=== PATIENT | female | born 1985 | race Hispanic/Latino ===

== ENCOUNTER → 2018-10-28 | Outpatient (CLI) | payer OTHER | END | disposition home or self-care (01) | LOC: SHCH 12:23 | PROVIDERS: ATTEND Internal Medicine Cardiovascular Disease | DX: I05.0 Rheumatic mitral stenosis (principal); I35.8 Other nonrheumatic aortic valve disorders; Z98.890 Other specified postprocedural states | CPT/HCPCS: 93306 ==

== ENCOUNTER 2019-07-02 20:37 | Emergency (ER) | payer OTHER ==
[2019-07-02] MEDS ORDERED: FLUORESCEIN SODIUM 1 STRIP STRIP ONE (20:47)
[2019-07-02] MEDS ORDERED: TETRACAINE HCL 0.5% 4 ML OPHTH SOLN ONE (20:47)
== END 2019-07-02 21:09 | disposition home or self-care (01) ==
LOC: EDH 20:37
DX: T15.12XA Foreign body in conjunctival sac, left eye, initial encounter (principal); X58.XXXA Exposure to other specified factors, initial encounter; Y93.89 Activity, other specified; Y92.89 Other specified places as the place of occurrence of the external cause; Y99.8 Other external cause status
CPT/HCPCS: 65205

== ENCOUNTER → 2022-01-11 | Outpatient (CLI) | payer BC | END | disposition home or self-care (01) | LOC: SHCH 15:27 | PROVIDERS: ATTEND Internal Medicine Cardiovascular Disease | DX: I34.2 Nonrheumatic mitral (valve) stenosis (principal); I27.20 Pulmonary hypertension, unspecified; I51.7 Cardiomegaly | CPT/HCPCS: 93306 ==

== ENCOUNTER 2022-02-26 07:37 | Day surgery (SDC) | payer BC ==
[2022-02-22 11:33] LABS: BASOPHILS % (AUTO) 0.4 % (0.0-5.0); EOSINOPHILS % (AUTO) 0.6 % (0.0-8.0); HEMATOCRIT 38.4 % (36-48); LYMPHOCYTES % (AUTO) 26.3 % (21.0-51.0); MEAN CORPUSCULAR HEMOGLOBIN 25.5 pg (27.0-33.0); MEAN CORPUSCULAR VOLUME 79.7 fL (79-99); MONOCYTES % (AUTO) 7.6 % (3.0-13.0); NEUTROPHILS % (AUTO) 64.7 % (40.0-77.0); PLATELET COUNT (AUTO) 310 K/uL (130-400); RED BLOOD CELL COUNT(AUTO) 4.82 MIL/uL (4.00-5.50); WHITE BLOOD COUNT (AUTO) 8.2 K/uL (4.8-10.8)
[2022-02-22 11:47] LABS: APPEARANCE,URINE Cloudy (CLEAR); BILIRUBIN,URINE Negative (NEGATIVE); COLOR,URINE Yellow (YELLOW); GLUCOSE, URINE (UA) Negative (NEGATIVE); KETONES,URINE Trace mg/dL (NEGATIVE); LEUKOCYTE ESTERASE ,URINE Small (NEGATIVE); NITRATE,URINE Negative (NEGATIVE); OCCULT BLOOD,URINE Negative (NEGATIVE); PROTEIN,URINE Negative (NEGATIVE)
[2022-02-22 11:52] LABS: CREATININE 0.8 mg/dL (0.5-1.5); POTASSIUM 4.2 mmol/L (3.5-5.1)
[2022-02-22 11:56] LABS: BACTERIA,URINE Rare /HPF (None Seen); RBC,URINE 0-1 /HPF (0-1); SQUAMOUS EPITHELIAL CELL,UR Rare /HPF (0-2)
[2022-02-22 11:59] LABS: B-TYPE NATRIURETIC PEPTIDE 64 pg/mL (0-100)
[2022-02-22 12:09] LABS: INR 1.04 (0.85-1.15); PROTHROMBIN TIME 11.3 SEC (9.6-11.6)
[2022-02-22 12:10] LABS: PARTIAL THROMBOPLASTIN TIME 28.6 SEC (26.3-35.5)
[2022-02-23 11:35] VITALS: BP 170/80
[2022-02-26] VITALS (24 sets, daily range): BP systolic 99–180; BP diastolic 50–98
[~2022-02-26] VITALS: Ht 149.9 cm; Wt 77.7 kg
[~2022-02-26 07:37] MED LIST: 0.9% NACL 500ML IV.SOLN 500 ML IV SCH
[2022-02-26] MEDS ORDERED: FLUMAZENIL 0.1MG/1ML 5ML VIAL IV ONE (08:02)
[2022-02-26] MEDS ORDERED: LIDOCAINE HCL 2% VISCOUS 15 ML UDCUP ONE (08:02)
[2022-02-26] MEDS ORDERED: 0.9%NACL 1000ML 1,000 ML IV ONE (08:03)
[2022-02-26] MEDS ORDERED: NALOXONE HCL 0.4 MG/1 ML ML ONE (08:03)
[2022-02-26] MEDS ORDERED: MIDAZOLAM HCL 1 MG/ML 2ML VIAL ONE ×3 (08:04→11:14)
[2022-02-26] MEDS ORDERED: FENTANYL CITRATE PF 50 MCG/1 ML 2ML VIAL ONE (08:04)
[2022-02-26] MEDS ORDERED: HEPARIN 10,000 UNIT/10ML (1,000 UNIT/ML) VIAL ONE (10:30)
[2022-02-26] MEDS ORDERED: IOHEXOL-350 75 ML VIAL IV ONE (10:30)
[2022-02-26] MEDS ORDERED: LIDOCAINE HCL 400MG/20ML VIAL ONE (10:30)
[2022-02-26] MEDS ORDERED: NITROGLYCERIN 50MG VIAL ONE (10:30)
[2022-02-26] MEDS ORDERED: MEPERIDINE-PF 25 MG/ML SYG ONE ×2 (10:38→11:14)
[2022-02-26] MEDS ORDERED: HYDRALAZINE 20MG/ML VIAL ONE (11:39)
[2022-02-26] MEDS ORDERED: 0.9%NACL 10ML VIAL IVP SCH (12:30)
[2022-02-26] MEDS ORDERED: ONDANSETRON 4MG INJ ONE (13:02)
[2022-02-26] MEDS: ONDANSETRON 4MG INJ IVP SCH ×2 (13:03→15:17)
== END 2022-02-26 16:26 | disposition home or self-care (01) ==
LOC: DAH 07:37
PROVIDERS: ATTEND Internal Medicine Cardiovascular Disease
DX: I25.10 Atherosclerotic heart disease of native coronary artery without angina pectoris (principal); I05.0 Rheumatic mitral stenosis; I50.42 Chronic combined systolic (congestive) and diastolic (congestive) heart failure; I44.7 Left bundle-branch block, unspecified; Z79.899 Other long term (current) drug therapy; Z79.01 Long term (current) use of anticoagulants; Z98.890 Other specified postprocedural states
CPT/HCPCS: 36415; 71045; 80048; 81001; 83880; 84703; 85025; 85610; 85730; 93005; 93312; 93460; A4215; A4216; A4221; A4222; A4223 ×3; A4606; A4657; A4663; C1760; C1894 ×2; J0360; J1644; J2175 ×2; J2250 ×3; J2405; J3010; J3490 ×2; J7030; Q9967; 99152; 99153; 99156; 99157; J2310

== ENCOUNTER → 2022-03-07 | Outpatient (CLI) | payer BC ==
[2022-03-07 12:55] LABS: ALBUMIN 3.3 g/dL (3.5-5.0); BILIRUBIN,TOTAL 0.4 mg/dL (0.2-1.0); CREATININE 0.8 mg/dL (0.5-1.5); POTASSIUM 3.8 mmol/L (3.5-5.1); TOTAL PROTEIN, SERUM 7.9 g/dL (6.0-8.3)
== END | disposition home or self-care (01) ==
LOC: LAB 10:40
PROVIDERS: ATTEND Physician Assistant
DX: I34.2 Nonrheumatic mitral (valve) stenosis (principal)
CPT/HCPCS: 36415; 80053; 83880

== ENCOUNTER → 2022-07-20 | Outpatient (CLI) | payer BC ==
[~2022-07-20] VITALS: Ht 152.4 cm; Wt 75.9 kg
[~2022-07-20] MED LIST changes: -0.9% NACL 500ML IV.SOLN 500 ML IV SCH; +CEFAZOLIN SODIUM 1 GM VIAL IVPB SCH; +TADA10TA14 PO
[2022-07-20 12:01] LABS: BASOPHILS % (AUTO) 0.3 % (0.0-5.0); EOSINOPHILS % (AUTO) 0.6 % (0.0-8.0); HEMATOCRIT 34.3 % (36-48); LYMPHOCYTES % (AUTO) 34.3 % (21.0-51.0); MEAN CORPUSCULAR HEMOGLOBIN 24.8 pg (27.0-33.0); MEAN CORPUSCULAR HGB CONC 32.4 g/dL (32.0-36.0); MEAN CORPUSCULAR VOLUME 76.7 fL (79-99); MONOCYTES % (AUTO) 7.3 % (3.0-13.0); NEUTROPHILS % (AUTO) 56.7 % (40.0-77.0); PLATELET COUNT (AUTO) 267 K/uL (130-400); RED BLOOD CELL COUNT(AUTO) 4.47 MIL/uL (4.00-5.50); RED CELL DISTRIBUTION WIDTH 14.6 % (11.0-15.5); WHITE BLOOD COUNT (AUTO) 6.6 K/uL (4.8-10.8)
[2022-07-20 12:12] LABS: INR 1.02 (0.85-1.15); PROTHROMBIN TIME 11.1 SEC (9.6-11.6)
[2022-07-20 12:13] LABS: PARTIAL THROMBOPLASTIN TIME 27.3 SEC (26.3-35.5)
[2022-07-20 12:16] LABS: ALBUMIN 3.6 g/dL (3.5-5.0); CREATININE 0.8 mg/dL (0.5-1.5); POTASSIUM 3.6 mmol/L (3.5-5.1); TOTAL PROTEIN, SERUM 7.8 g/dL (6.0-8.3)
[2022-07-20 12:31] LABS: HEMOGLOBIN A1C 5.5 % (4.0-6.0)
[2022-07-20 12:39] LABS: B-TYPE NATRIURETIC PEPTIDE 161 pg/mL (0-100)
[2022-07-20 13:38] VITALS: BP 174/86
== END | disposition home or self-care (01) ==
LOC: DAH 10:00 → EDSTATUS 07-23 08:00
PROVIDERS: ATTEND Thoracic Surgery (Cardiothoracic Vascular Surgery)
DX: Z01.810 Encounter for preprocedural cardiovascular examination (principal); Z20.822 Contact with and (suspected) exposure to COVID-19; I34.2 Nonrheumatic mitral (valve) stenosis; Z79.01 Long term (current) use of anticoagulants; Z79.899 Other long term (current) drug therapy
CPT/HCPCS: 71045; 87426; 80061; 83036; 80053; 83880; 84703; 85025; 85610; 85730; 86850; 86900; 86901; 36415; 93005; 94010; 87641; A6260

== ENCOUNTER 2022-11-16 22:29 | Emergency (ER) | payer BC ==
[~2022-11-16] VITALS: Ht 152.4 cm; Wt 70.8 kg
[~2022-11-16 22:29] MED LIST changes: -CEFAZOLIN SODIUM 1 GM VIAL IVPB SCH; +DOXY-469 PO; +FURO20TA6 PO; +METO25 PO; +Warfarin Sodium PO
[2022-11-16 23:00] LABS: BASOPHILS % (AUTO) 0.3 % (0.0-5.0); EOSINOPHILS % (AUTO) 1.1 % (0.0-8.0); HEMATOCRIT 25.7 % (36-48); LYMPHOCYTES % (AUTO) 25.5 % (21.0-51.0); MEAN CORPUSCULAR HEMOGLOBIN 24.6 pg (27.0-33.0); MEAN CORPUSCULAR HGB CONC 30.4 g/dL (32.0-36.0); MEAN CORPUSCULAR VOLUME 81.1 fL (79-99); MONOCYTES % (AUTO) 7.4 % (3.0-13.0); PLATELET COUNT (AUTO) 367 K/uL (130-400); RED BLOOD CELL COUNT(AUTO) 3.17 MIL/uL (4.00-5.50); RED CELL DISTRIBUTION WIDTH 15.7 % (11.0-15.5); WHITE BLOOD COUNT (AUTO) 9.7 K/uL (4.8-10.8)
[2022-11-16] MEDS ORDERED: MORPHINE 4 MG SYG IVP ONE (23:00)
[2022-11-16] MEDS ORDERED: ONDANSETRON 4MG INJ IVP ONE (23:00)
[2022-11-16 23:07] LABS: CREATININE 0.8 mg/dL (0.5-1.5); POTASSIUM 3.1 mmol/L (3.5-5.1)
[2022-11-16 23:15] LABS: ALBUMIN 3.6 g/dL (3.5-5.0); TOTAL PROTEIN, SERUM 7.6 g/dL (6.0-8.3)
[2022-11-16] MEDS ORDERED: POTASSIUM BICARB/CIT AC 25 MEQ TABLET.EFF PO ONE (23:30)
[2022-11-17] MEDS ORDERED: METOPROLOL TARTRATE 1 MG/ML 5ML VIAL IV ONE
[2022-11-17 01:08] VITALS: BP 136/70
== END 2022-11-17 01:19 | disposition home or self-care (01) ==
LOC: EDH 22:29
DX: R07.89 Other chest pain (principal); E87.6 Hypokalemia; Z95.1 Presence of aortocoronary bypass graft; Z88.1 Allergy status to other antibiotic agents; Z79.899 Other long term (current) drug therapy
CPT/HCPCS: 99284; 96374; 71045; 96375; 84484 ×2; 80053; 85025; 36415; 93005; J3490; J2405; J2270

== ENCOUNTER → 2023-01-08 | Outpatient (CLI) | payer BC | END | disposition home or self-care (01) | LOC: SHCH 11:18 | PROVIDERS: ATTEND Internal Medicine Cardiovascular Disease | DX: I08.0 Rheumatic disorders of both mitral and aortic valves (principal); Z95.2 Presence of prosthetic heart valve | CPT/HCPCS: 93306 ==

== ENCOUNTER → 2023-08-14 | Outpatient (CLI) | payer BC ==
[2023-08-14 12:15] LABS: BASOPHILS # (AUTO) 0.04 K/uL (0.00-0.20); BASOPHILS % (AUTO) 0.8 % (0.0-5.0); EOSINOPHILS # (AUTO) 0.11 K/uL (0.00-0.70); EOSINOPHILS % (AUTO) 2.1 % (0.0-8.0); IMMATURE GRANULOCYTE ABSOLUTE 0.02 K/uL (0-1); LYMPHOCYTES # (AUTO) 1.7 K/uL (1.0-4.8); LYMPHOCYTES % (AUTO) 32.3 % (21.0-51.0); MEAN CORPUSCULAR HEMOGLOBIN 21.4 pg (27.0-33.0); MEAN CORPUSCULAR HGB CONC 28.2 g/dL (32.0-36.0); MEAN CORPUSCULAR VOLUME 75.9 fL (79-99); MONOCYTES # (AUTO) 0.4 K/uL (0.1-1.0); MONOCYTES % (AUTO) 7.8 % (3.0-13.0); NEUTROPHILS % (AUTO) 56.6 % (40.0-77.0); PLATELET COUNT (AUTO) 322 K/uL (130-400); RED BLOOD CELL COUNT(AUTO) 3.69 MIL/uL (4.00-5.50); RED CELL DISTRIBUTION WIDTH 15.6 % (11.0-15.5); WHITE BLOOD COUNT (AUTO) 5.2 K/uL (4.8-10.8)
[2023-08-14 12:49] LABS: ALBUMIN 3.5 g/dL (3.5-5.0); BILIRUBIN,TOTAL 0.6 mg/dL (0.2-1.0); CREATININE 0.8 mg/dL (0.5-1.5); MAGNESIUM 1.8 mg/dL (1.80-2.40); POTASSIUM 4.1 mmol/L (3.5-5.1); TOTAL PROTEIN, SERUM 7.5 g/dL (6.0-8.3)
== END | disposition home or self-care (01) ==
LOC: LAB 08:09
PROVIDERS: ATTEND Internal Medicine Cardiovascular Disease
DX: I35.0 Nonrheumatic aortic (valve) stenosis (principal)
CPT/HCPCS: 36415; 80053; 83735; 83880; 85025

== ENCOUNTER 2024-02-13 05:53 | Day surgery (SDC) | payer BC ==
[~2024-02-13] VITALS: Ht 152.4 cm; Wt 68.9 kg
[2024-02-13] VITALS (10 sets, daily range): BP systolic 130–146; BP diastolic 62–80; PULSE 53–75; RESP 14–17
[~2024-02-13 05:53] MED LIST changes: +CHOL200079 PO; +CYAN250010 PO; -DOXY-469 PO; -FURO20TA6 PO; +POTA-200 PO; -TADA10TA14 PO
[2024-02-13] MEDS: 0.9%NACL 1000ML 1,000 ML IV ONE (06:37)
[2024-02-13] MEDS ORDERED: AMOXICILLIN 500 MG CAPSULE PO ONE (07:30)
[2024-02-13] MEDS ORDERED: PROPOFOL 10 MG/ML 20ML VIAL IV ONE (07:49)
== END 2024-02-13 09:22 | disposition home or self-care (01) ==
LOC: ENDO 05:53 → DAH 05:53 → ENDO 09:22
PROVIDERS: ATTEND Internal Medicine Gastroenterology
DX: D50.0 Iron deficiency anemia secondary to blood loss (chronic) (principal); D12.0 Benign neoplasm of cecum; D3A.8 Other benign neuroendocrine tumors; K29.50 Unspecified chronic gastritis without bleeding; Z90.49 Acquired absence of other specified parts of digestive tract; Z98.890 Other specified postprocedural states; Z95.2 Presence of prosthetic heart valve
CPT/HCPCS: 81025; 45380; 43239; J7030 ×2; J2704; A4620; A4215 ×2; A4223; A4657; A4222; A4221; A4663; A4606; J3490

== ENCOUNTER → 2024-04-15 | Outpatient (CLI) | payer BC | END | disposition home or self-care (01) | LOC: SHCH 12:20 | PROVIDERS: ATTEND Internal Medicine Cardiovascular Disease | DX: I08.3 Combined rheumatic disorders of mitral, aortic and tricuspid valves (principal); Z95.2 Presence of prosthetic heart valve | CPT/HCPCS: 93306 ==

== ENCOUNTER 2024-06-26 12:43 | Emergency (ER) | payer BC ==
[~2024-06-26] VITALS: Ht 152.4 cm; Wt 69.9 kg
[2024-06-26 12:45] VITALS: BP 154/87; PULSE 58; RESP 20; TEMP 97.4
== END 2024-06-26 13:45 | disposition home or self-care (01) ==
LOC: EDH 12:43
DX: S60.212A Contusion of left wrist, initial encounter (principal); Z79.01 Long term (current) use of anticoagulants; Z90.49 Acquired absence of other specified parts of digestive tract; Z95.1 Presence of aortocoronary bypass graft; W22.8XXA Striking against or struck by other objects, initial encounter; Y93.89 Activity, other specified; Y92.89 Other specified places as the place of occurrence of the external cause; Y99.8 Other external cause status
CPT/HCPCS: 99281

== ENCOUNTER → 2025-01-05 | Outpatient (CLI) | payer BC | END | disposition home or self-care (01) | LOC: SHCH 15:13 | PROVIDERS: ATTEND Internal Medicine Cardiovascular Disease | DX: I08.2 Rheumatic disorders of both aortic and tricuspid valves (principal); I11.9 Hypertensive heart disease without heart failure | CPT/HCPCS: 93306 ==

== ENCOUNTER 2025-02-06 18:00 | Emergency (ER) | payer BC ==
[~2025-02-06] VITALS: Ht 152.4 cm; Wt 68.0 kg
--- NOTE | 2025-02-06 18:42 | EKG ---
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
[2025-02-06 19:14] LABS: BASOPHILS # (AUTO) 0.04 K/uL (0.00-0.20); BASOPHILS % (AUTO) 0.6 % (0.0-5.0); EOSINOPHILS % (AUTO) 1.6 % (0.0-8.0); HEMATOCRIT 26.7 % (36-48); IMMATURE GRANULOCYTE ABSOLUTE 0.04 K/uL (0-1); LYMPHOCYTES # (AUTO) 2.5 K/uL (1.0-4.8); LYMPHOCYTES % (AUTO) 39.2 % (21.0-51.0); MEAN CORPUSCULAR HEMOGLOBIN 24.1 pg (27.0-33.0); MEAN CORPUSCULAR HGB CONC 30.7 g/dL (32.0-36.0); MEAN CORPUSCULAR VOLUME 78.5 fL (79-99); MONOCYTES # (AUTO) 0.5 K/uL (0.1-1.0); MONOCYTES % (AUTO) 8.3 % (3.0-13.0); NEUTROPHILS # (AUTO) 3.2 K/uL (1.8-7.7); NEUTROPHILS % (AUTO) 49.7 % (40.0-77.0); PLATELET COUNT (AUTO) 375 K/uL (130-400); RED CELL DISTRIBUTION WIDTH 17.1 % (11.0-15.5); WHITE BLOOD COUNT (AUTO) 6.4 K/uL (4.8-10.8)
[2025-02-06 19:22] LABS: CREATININE 0.8 mg/dL (0.5-1.0); POTASSIUM 3.4 mmol/L (3.5-5.1)
[2025-02-06 19:32] LABS: APPEARANCE,URINE CLOUDY (CLEAR); BILIRUBIN,URINE NEGATIVE (NEGATIVE); COLOR,URINE YELLOW (YELLOW); GLUCOSE, URINE (UA) NEGATIVE (NEGATIVE); KETONES,URINE NEGATIVE (NEGATIVE); LEUKOCYTE ESTERASE ,URINE NEGATIVE Leu/uL (NEGATIVE); NITRATE,URINE NEGATIVE (NEGATIVE); OCCULT BLOOD,URINE SMALL (NEGATIVE); PH,URINE 5.5 (5.0-8.0); PROTEIN,URINE NEGATIVE (NEGATIVE); UROBILINOGEN,URINE 0.2 mg/dL (0.2-1.0)
--- NOTE | 2025-02-06 19:33 | HMCIMG ---
PORTABLE CHEST RADIOGRAPH INDICATION: CHEST PAIN COMPARISON: None FINDINGS: Median sternotomy wires are in appropriate alignment. Heart size is normal. The pulmonary vascularity and edith appear normal. No abnormal pulmonary parenchymal opacity or consolidation identified. No significant pleural effusion noted. No pneumothorax detected. IMPRESSION: No radiographic evidence for any acute cardiopulmonary process.
[2025-02-06 19:36] LABS: ADD UA MICROSCOPIC YES
[2025-02-06 19:38] LABS: MUCUS,URINE MOD LPF (None Seen); SQUAMOUS EPITHELIAL CELL,UR RARE /HPF (0-2)
[2025-02-06 20:01] LABS: B-TYPE NATRIURETIC PEPTIDE 75 pg/mL (0-100)
--- NOTE | 2025-02-06 21:42 | ERN ---
General Chief Complaint: Chest Wall Pain Stated Complaint: TIGHTNESS IN CHEST STARTED 15 MIN AGO Time Seen by MD: 21:15 History of Present Illness Initial Comments Patient experienced chest tightness 15 minutes prior to coming to the hospital she acknowledges that she does have anxiety but she is concerned is that she has never experienced this before. Allergies: Coded Allergies: No Known Drug Allergies (Verified Allergy, Unknown, 01/27/14) cephalexin (Unverified Allergy, Unknown, 02/26/22) Home Meds Active Scripts [Warfarin Sodium] 5 MG TAB No Conflict Check, 5 MG PO WARF, #30 0 Refills Prov:GAMALIEL MERCADO VECTOR CONTROL ASSISTANT 08/12/22 Metoprolol Tartrate (Lopressor) 25 Mg Tab, 12.5 MG PO BID, #30 TAB 0 Refills Prov:GAMALIEL MERCADO VECTOR CONTROL ASSISTANT 08/12/22 Reported Medications Cholecalciferol (Vitamin D3) (Vitamin D3) 50 Mcg (2000 Unit) Tab.chew, 50 MCG PO QWEEK, TAB.CHEW 02/12/24 Cyanocobalamin (Vitamin B-12) (Vitamin B12) 2,500 Mcg Tablet, 2500 MCG PO AM, TAB 02/12/24 Potassium Chloride (Potassium Chloride) 10 Meq Tab.er.prt, 10 MEQ PO AM 02/12/24 Past Medical History Past Medical History: Anemia, Heart Disease Medical History Other: PULMONARY HTN Past Surgical History: Cholecystectomy, CABG Surgical History Other: MECHANICAL VAVE Constitutional: (-) chills, (-) diaphoresis, (-) fever, (-) malaise, (-) weakness, (-) other documentation EENTM: (-) eye pain, (-) blurred vision, (-) tearing, (-) double vision, (-) ear pain, (-) ear discharge, (-) nose pain, (-) nose congestion, (-) throat pain, (-) Throat swelling, (-) mouth pain, (-) tooth pain, (-) mouth swelling, (-) other documentation Respiratory: (-) cough, (-) orthopnea, (-) short of breath, (-) stridor, (-) wheezing, (-) other documentation Cardiovascular: (-) chest pain, (-) edema, (-) palpitations, (-) syncope, (-) dyspnea on exertion, (-) other documentation Gastrointestinal/Abdominal: (-) nausea, (-) vomiting, (-) diarrhea, (-) abdominal pain, (-) abdominal distention, (-) constipation, (-) rectal bleeding, (-) dark stool/melena, (-) other documentation Genitourinary: (-) vaginal discharge, (-) vaginal bleeding, (-) dysuria, (-) frequency, (-) hematuria, (-) pain, (-) other documentation Musculoskeletal: (-) Neck pain, (-) back pain, (-) Flank Pain, (-) joint pain, (-) joint swelling, (-) muscle pain, (-) muscle stiffness, (-) gout, (-) other documentation Physical Exam Orientation: (+) alert Head/Face Trauma: No Eye: bilateral eye normal inspection, bilateral eye PERRL, bilateral eye EOMI Ear, Nose, Throat: (+) hearing grossly normal Neck: (+) normal inspection, (+) supple, (+) no JVD Respiratory: (+) chest non-tender, (+) lungs clear Heart: (+) regular, (+) no gallop Vascular: (+) no edema, (+) no JVD Gastrointestinal: (+) soft, (+) non-tender Results Laboratory and Microbiology Lab and Micro Result Laboratory Tests Test 02/06/25 18:59 02/06/25 19:00 Urine Color YELLOW (YELLOW) Urine Appearance CLOUDY (CLEAR) H Urine pH 5.5 (5.0-8.0) Urine Specific [place] 1.020 (1.001-1.031) Urine Protein NEGATIVE mg/dL (NEGATIVE) Urine Glucose (UA) NEGATIVE mg/dL (NEGATIVE) Urine Ketones NEGATIVE mg/dL (NEGATIVE) Urine Occult Blood SMALL (NEGATIVE) H Urine Nitrate NEGATIVE (NEGATIVE) Urine Bilirubin NEGATIVE mg/dL (NEGATIVE) Urine Urobilinogen 0.2 mg/dL (0.2-1.0) Urine Leukocyte Esterase NEGATIVE Zachary/uL Urine RBC 2-5 /HPF (0-1) H Urine WBC 2-5 /HPF (0-1) H Urine Squamous Epithelial Cells RARE /HPF (0-2) Urine Bacteria None /HPF (None Seen) White Blood Count 6.4 K/uL (4.8-10.8) Red Blood Count 3.40 MIL/uL (4.00-5.50) L Hemoglobin 8.2 g/dL (12.0-16.0) L Hematocrit 26.7 % (36-48) L Mean Corpuscular Volume 78.5 fL (79-99) L Mean Corpuscular Hemoglobin 24.1 pg (27.0-33.0) L Mean Corpuscular Hemoglobin Concent 30.7 g/dL (32.0-36.0) L Red Cell Distribution Width 17.1 % (11.0-15.5) H Platelet Count 375 K/uL (130-400) Mean Platelet Volume 12.8 fL (7.5-10.5) H Immature Granulocyte % (Auto) 0.6 % (0-1) Neutrophils (%) (Auto) 49.7 % (40.0-77.0) Lymphocytes (%) (Auto) 39.2 % (21.0-51.0) Monocytes (%) (Auto) 8.3 % (3.0-13.0) Eosinophils (%) (Auto) 1.6 % (0.0-8.0) Basophils (%) (Auto) 0.6 % (0.0-5.0) Neutrophils # (Auto) 3.2 K/uL (1.8-7.7) Lymphocytes # (Auto) 2.5 K/uL (1.0-4.8) Monocytes # (Auto) 0.5 K/uL (0.1-1.0) Eosinophils # (Auto) 0.10 K/uL (0.00-0.70) Basophils # (Auto) 0.04 K/uL (0.00-0.20) Absolute Immature Granulocyte (auto 0.04 K/uL (0-1) Nucleated Red Blood Cells 0.0 % (0.0-0.19) Red Blood Cell Morphology See comments Sodium Level 139 mmol/L (136-145) Potassium Level 3.4 mmol/L (3.5-5.1) L Chloride Level 103 mmol/L (101-111) Carbon Dioxide Level 27 mmol/L (21-32) Blood Urea Nitrogen 10 mg/dL (7-18) Creatinine 0.8 mg/dL (0.5-1.0) Glomerular Filtration Rate Calc 95 mL/min (>90) Random Glucose 87 mg/dL (70-105) Total Calcium 8.8 mg/dL (8.5-10.1) Total Creatine Kinase 68 U/L (21-232) Troponin I High Sensitivity 8 ng/L (4-50) B-Type Natriuretic Peptide 75 pg/mL (0-100) MDM Given patient's cardiac history and chest tightness the usual labs were obtained. They are all negative. In addition EKG was showed no ST elevations it showed ST-elevation secondary to IV CD left bundle branch block possible prolonged OH interval otherwise normal sinus rhythm. Patient says she feels better and would like to go home. ED Course Orders Procedure Category Date Status Time 12 Lead Ekg Tracing- EKG 02/06/25 Complete Technical 18:32 Vital Signs Per CPOE 02/06/25 Transmitted Routine 18:51 B-Type Natriuretic LAB 02/06/25 Complete Peptide 18:51 Chest 1vw RAD 02/06/25 Resulted 18:51 Oxygen By Nc/Pulse Ox CPOE 02/06/25 Transmitted 18:51 Maintain Iv CPOE 02/06/25 Transmitted 18:51 Iv Insertion CPOE 02/06/25 Transmitted 18:51 Cardiac Monitoring CPOE 02/06/25 Transmitted 18:51 Pulse Oximetry With CPOE 02/06/25 Transmitted Vs And Prn 18:51 Cbc With Differential LAB 02/06/25 Complete 18:51 Activity: Br W/Brp CPOE 02/06/25 Transmitted With Assist 18:51 Creatine Kinase, Total LAB 02/06/25 Complete 18:51 Troponin I High LAB 02/06/25 Complete Sensitivity 18:51 Urinalysis Profile LAB 02/06/25 Complete 18:51 Basic Metabolic Panel LAB 02/06/25 Complete 18:51 Vital Signs Date Time Temp Pulse Resp B/P (MAP) Pulse Ox O2 Delivery O2 Flow Rate FiO2 02/06/25 20:27 98.1 63 14 173/75 97 Room Air* 0 21 02/06/25 18:51 98.4 73 19 170/77 100 Room Air* 0 21 02/06/25 18:33 97.7 74 16 161/86 98 Room Air 0 DX & DISP Disposition: Discharge Departure Impression: Primary Impression: Chest pain Condition: Stable Additional Instructions: Your EKGs normal your laboratory studies are normal you are not experiencing cardiac ischemia. In his warm weather please stay hydrated as that can cause some of the symptoms that you experienced. Feel free to return to the emergency room if you have more cardiac symptoms. Referrals: DANAY MUÑOZ MD (PCP) Please stay well hydrated DALIA GONZALEZ MD February 06, 2025 21:42
[2025-02-06 22:12] VITALS: BP 156/76; PULSE 65; RESP 14; TEMP 98.2; O2SAT 98
== END 2025-02-06 22:13 | disposition home or self-care (01) ==
LOC: EDH 18:00
DX: R07.81 Pleurodynia (principal); Z79.899 Other long term (current) drug therapy; Z88.1 Allergy status to other antibiotic agents; Z90.49 Acquired absence of other specified parts of digestive tract; Z95.1 Presence of aortocoronary bypass graft
CPT/HCPCS: 36415; 71045; 80048; 81001; 82550; 83880; 84484; 85025; 93005; 99284

== ENCOUNTER 2025-04-27 12:09 | Emergency (ER) | payer BC ==
[~2025-04-27] VITALS: Ht 152.4 cm; Wt 69.9 kg
[2025-04-27 12:50] LABS: IMMATURE GRANULOCYTE ABSOLUTE 0.02 K/uL (0-1); NUCLEATED RED BLOOD CELLS 0.0 % (0.0-0.19); PLATELET COUNT (AUTO) 339 K/uL (130-400); RED BLOOD CELL COUNT(AUTO) 3.50 MIL/uL (4.00-5.50); RED CELL DISTRIBUTION WIDTH 18.8 % (11.0-15.5); WHITE BLOOD COUNT (AUTO) 5.4 K/uL (4.8-10.8)
[2025-04-27 12:51] LABS: ADD UA MICROSCOPIC YES; APPEARANCE,URINE CLOUDY (CLEAR); GLUCOSE, URINE (UA) NEGATIVE (NEGATIVE); LEUKOCYTE ESTERASE ,URINE 75 Leu/uL (NEGATIVE); NITRATE,URINE NEGATIVE (NEGATIVE); OCCULT BLOOD,URINE LARGE (NEGATIVE)
--- NOTE | 2025-04-27 12:54 | EKG ---
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
[2025-04-27 12:56] LABS: HCG,QUALITATIVE URINE NEGATIVE (NEGATIVE)
[2025-04-27 12:58] LABS: SQUAMOUS EPITHELIAL CELL,UR MANY /HPF (0-2)
[2025-04-27] MEDS: LACTATED RINGERS 1000ML 1,000 ML IV ONE (13:00)
[2025-04-27 13:21] LABS: GLUCOSE,RANDOM 98.0 mg/dL (70-105); SODIUM SERUM 138.0 mmol/L (136-145); UREA NITROGEN, BLOOD 8.0 mg/dL (7-18)
[2025-04-27 13:22] LABS: CREATININE 0.7 mg/dL (0.5-1.0); GLOMERULAR FILTR. RATE CALC 112.0 mL/min (>90)
--- NOTE | 2025-04-27 13:33 | ERN ---
General Chief Complaint: Other Problems Stated Complaint: SHAKINESS Time Seen by MD: 12:15 Source: patient History of Present Illness Initial Comments PATIENT IS A 39-YEAR-OLD FEMALE COMING IN WITH MULTIPLE COMPLAINTS. PER HAS BEEN PATIENT WAS VIDEOTAPED HAVING WHAT HE BELIEVES WAS A SEIZURE. HE STATES THAT HE WAS CONCERNED SHE IS BEING EVALUATED BY NEUROLOGIST AND IS PENDING AN EEG. Allergies: Coded Allergies: No Known Drug Allergies (Verified Allergy, Unknown, 01/27/14) cephalexin (Unverified Allergy, Unknown, 02/26/22) Home Meds Active Scripts [Warfarin Sodium] 5 MG TAB No Conflict Check, 5 MG PO WARF, #30 0 Refills Prov:GAMALIEL MERCADO RESEARCH INTERVIEWER 08/12/22 Metoprolol Tartrate (Lopressor) 25 Mg Tab, 12.5 MG PO BID, #30 TAB 0 Refills Prov:GAMALIEL MERCADO RESEARCH INTERVIEWER 08/12/22 Reported Medications Cholecalciferol (Vitamin D3) (Vitamin D3) 50 Mcg (2000 Unit) Tab.chew, 50 MCG PO QWEEK, TAB.CHEW 02/12/24 Cyanocobalamin (Vitamin B-12) (Vitamin B12) 2,500 Mcg Tablet, 2500 MCG PO AM, TAB 02/12/24 Potassium Chloride (Potassium Chloride) 10 Meq Tab.er.prt, 10 MEQ PO AM 02/12/24 Past Medical History Past Medical History: Anemia, Heart Disease Medical History Other: PULMONARY HTN Past Surgical History: Cholecystectomy, CABG Surgical History Other: MECHANICAL VAVE Female( History) LMP: Apr 26, 2024 ROS Dictation CONSTITUTIONAL: NO CHILLS, NO FEVER, NO WEAKNESS, NO DIAPHORESIS, NO MALAISE. HEAD/FACE: NO SIGNS OF TRAUMA. EENT: NO EYE PAIN, NO BLURRED VISION, NO TEARING, NO DOUBLE VISION, NO EAR PAIN, NO EAR DISCHARGE, NO NOSE PAIN, NO NASAL CONGESTION, NO THROAT PAIN, NO THROAT SWELLING, NO MOUTH PAIN. RESPIRATORY: NO COUGH, NO ORTHOPNEA, NO SOB, NO STRIDOR, NO WHEEZING. CARDIOVASCULAR: NO CHEST PAIN, NO EDEMA, NO PALPITATIONS, NO SYNCOPE. GASTROINTESTINAL/ABDOMINAL: NO ABDOMINAL PAIN, NO CONSTIPATION, NO DIARRHEA, NO NAUSEA, NO VOMITING. GENITOURINARY: NO ABNORMAL DISCHARGE, NO DYSURIA, NO FREQUENT URINATION, NO HEMATURIA. NO COMPLAINTS OF PAIN IN THE GENITALS. MUSCULOSKELETAL: NO BACK PAIN, NO GOUT, NO JOINT PAIN, NO JOINT SWELLING, NO MUSCLE PAIN, NO MUSCLE STIFFNESS, NO NECK PAIN. INTEGUMENTARY: NO CHANGE IN COLOR, NO CHANGE IN HAIR/NAILS, NO DRYNESS, NO LESION, NO LUMPS, NO RASH. NEUROLOGICAL/PSYCH: NO ANXIETY, NOT DEPRESSED, NO EMOTIONAL PROBLEM, NO HEADACHE, NO NUMBNESS, NO PRE-EXISTING DEFICIT, NO HISTORY OF SEIZURES, NO TREMORS, NO WEAKNESS. HEMATOLOGIC/LYMPHATIC: NOT ANEMIC, NO HISTORY OF BLOOD CLOTS, NO APPARENT BLEEDING, NO BRUISING, GLANDS NOT SWOLLEN. ALL SYSTEMS NEGATIVE, EXCEPT NOTED. Physical Exam Physical Exam Dictation VITAL SIGNS: REVIEWED. GENERAL APPEARANCE: ALERT, ORIENTED X3, NO ACUTE DISTRESS, OBESE. HEAD AND FACE: NON-TRAUMATIC. EYES: PERRL, PINK CONJUNCTIVAS, EYELID NO TRAUMA, ANTERIOR CHAMBER CLEAR. EARS: PINNAS INTACT AND NO SIGNS OF TRAUMA OR ERYTHEMA. EAR CANALS CLEAR AND NO DISCHARGE. TMS NO ERYTHEMA. NOSE: NO DISCHARGE, NO BLEEDING. OROPHARYNX: MOUTH NORMAL, TEETH NO CARIES, TONGUE PINK. PHARYNX CLEAR, NO ERYTHEMA. TONSILS NO EXUDATES, NO ABSCESSES NOTED. MUCOUS MEMBRANE MOIST. NECK: SUPPLE, NON-TENDER, NO THYROMEGALY, NO MASSES, NO JVD, NO BRUITS. BREAST: DEFERRED. CHEST: NO TENDERNESS, NO CREPITUS, NO PARADOXICAL MOVEMENT, NO RETRACTIONS. LUNGS: CLEAR, WELL-VENTILATED, SYMMETRIC, NO RALES, NO WHEEZING, NO RHONCHI, NO STRIDOR, GOOD BREATH SOUNDS BILATERALLY. HEART: REGULAR RATE, REGULAR RHYTHM, NO MURMUR, NO GALLOPS. VASCULAR: NO PERIPHERAL EDEMA. ABDOMEN: SOFT, POSITIVE BOWEL SOUNDS, NONDISTENDED, NO GUARDING, NONTENDER, NO REBOUND, NO MASSES NO HEPATOMEGALY, NO SPLENOMEGALY, NO HORNER'S SIGN, NO HERNIA S. RECTAL: DEFERRED. GENITAL: DEFERRED. NEUROLOGICAL: NORMAL SPEECH, GROSS MOTOR FUNCTION INTACT, GROSS SENSORY FUNCTION INTACT. MUSCULOSKELETAL: NECK NONTENDER, FULL RANGE OF MOTION, BACK NONTENDER, FULL RANGE OF MOTION. EXTREMITIES: NONTENDER, FULL RANGE OF MOTION. SKIN: COLOR PINK, DRY, NO TURGOR, NO RASH, NO LACERATIONS, NO ABRASIONS, NO CONTUSIONS. LYMPHATICS: DEFERRED. Results Laboratory and Microbiology Lab and Micro Result Laboratory Tests Test 04/27/25 12:35 04/27/25 12:45 Urine Color LIGHT-YELLOW (YELLOW) Urine Appearance CLOUDY (CLEAR) H Urine pH 6.5 (5.0-8.0) Urine Specific [place] 1.013 (1.001-1.031) Urine Protein NEGATIVE mg/dL (NEGATIVE) Urine Glucose (UA) NEGATIVE mg/dL (NEGATIVE) Urine Ketones NEGATIVE mg/dL (NEGATIVE) Urine Occult Blood LARGE (NEGATIVE) H Urine Nitrate NEGATIVE (NEGATIVE) Urine Bilirubin NEGATIVE mg/dL (NEGATIVE) Urine Urobilinogen 2.0 mg/dL (0.2-1.0) H Urine Leukocyte Esterase 75 Zachary/uL (NEGATIVE) H Urine RBC 2-5 /HPF (0-1) H Urine WBC 26-50 /HPF (0-1) H Urine Squamous Epithelial Cells MANY /HPF (0-2) Urine Bacteria RARE /HPF (None Seen) Urine HCG, Qualitative NEGATIVE (NEGATIVE) White Blood Count 5.4 K/uL (4.8-10.8) Red Blood Count 3.50 MIL/uL (4.00-5.50) L Hemoglobin 7.7 g/dL (12.0-16.0) L Hematocrit 26.4 % (36-48) L Mean Corpuscular Volume 75.4 fL (79-99) L Mean Corpuscular Hemoglobin 22.0 pg (27.0-33.0) L Mean Corpuscular Hemoglobin Concent 29.2 g/dL (32.0-36.0) L Red Cell Distribution Width 18.8 % (11.0-15.5) H Platelet Count 339 K/uL (130-400) Mean Platelet Volume 11.2 fL (7.5-10.5) H Immature Granulocyte % (Auto) 0.4 % (0-1) Neutrophils (%) (Auto) 55.2 % (40.0-77.0) Lymphocytes (%) (Auto) 32.3 % (21.0-51.0) Monocytes (%) (Auto) 9.5 % (3.0-13.0) Eosinophils (%) (Auto) 2.0 % (0.0-8.0) Basophils (%) (Auto) 0.6 % (0.0-5.0) Neutrophils # (Auto) 3.0 K/uL (1.8-7.7) Lymphocytes # (Auto) 1.7 K/uL (1.0-4.8) Monocytes # (Auto) 0.5 K/uL (0.1-1.0) Eosinophils # (Auto) 0.11 K/uL (0.00-0.70) Basophils # (Auto) 0.03 K/uL (0.00-0.20) Absolute Immature Granulocyte (auto 0.02 K/uL (0-1) Nucleated Red Blood Cells 0.0 % (0.0-0.19) Red Blood Cell Morphology See comments Sodium Level 138 mmol/L (136-145) Potassium Level 3.5 mmol/L (3.5-5.1) Chloride Level 103 mmol/L (101-111) Carbon Dioxide Level 28 mmol/L (21-32) Blood Urea Nitrogen 8 mg/dL (7-18) Creatinine 0.7 mg/dL (0.5-1.0) Glomerular Filtration Rate Calc 112 mL/min (>90) Random Glucose 98 mg/dL (70-105) Total Calcium 8.3 mg/dL (8.5-10.1) L Troponin I High Sensitivity 7 ng/L (4-50) Labs Reviewed?: Yes EKG/XRAY/US/CT/MRI EKG Comment 04/27/2025 TIME 12:50 P.M. VENTRICULAR RATE 71 SINUS RHYTHM, LEFT BUNDLE-BRANCH BLOCK ID [id number] WAVE ELEVATION OR DEPRESSION LEFT BUNDLE BRANCH BLOCK PRESENT ON PREVIOUS EKG ON 02/06/2025 X-RAY Comment CHEST X-RAY-NAD MDM MDM: DIFFERENTIAL DIAGNOSIS: ANEMIA, UTI RATIONALE: TESTS CONSIDERED AND ORDERED SECONDARY TO SHARED DECISION MAKING INCLUDE: PREVIOUS OUTSIDE RECORDS REVIEWED: OLD ER VISITS. RISK OF COMPLICATION AND/OR MORBIDITY OR MORTALITY OF PATIENT MANAGEMENT: NONE MEDICATIONS-PER MEDICATION RECONCILIATION NEED FOR HOSPITALIZATION: PATIENT DOES NOT MEET CRITERIA FOR HOSPITALIZATION. NEED FOR EMERGENCY MAJOR/MINOR SURGERY: NO PATIENT IS A 39-YEAR-OLD FEMALE COMING IN TO BE EVALUATED AFTER WHAT HER THOUGHT WAS A SEIZURE. HAS BEEN WAS ABLE TO VIDEOTAPE BASED ON THE VIDEO PATIENT SEEMS TO BE HAVING MORE OF A NARCOLEPSY ATTACK. PATIENT HAS BEEN EVALUATED BY NEUROLOGIST ALREADY. LABORATORY WORKUP POSITIVE FOR ANEMIA IN HIS WELL A UTI. PATIENT WILL BE DISCHARGED IN STABLE CONDITION WITH A DIAGNOSIS ANEMIA AND UTI. ED Course Orders Procedure Category Date Status Time Cbc With Differential LAB 04/27/25 Complete 12:33 Chest 1vw RAD 04/27/25 Taken 12:33 12 Lead Ekg Tracing- EKG 04/27/25 Complete Technical 12:33 Lactated Ringers PHA 04/27/25 Complete 1000ml (Lactated 13:00 ,Urine Test LAB 04/27/25 Complete 12:33 Troponin I High LAB 04/27/25 Complete Sensitivity 12:33 Urinalysis Profile LAB 04/27/25 Complete 12:33 Basic Metabolic Panel LAB 04/27/25 Complete 12:33 Culture Urine TIFFANIE 04/27/25 Logged 12:51 Current Medications Medications (Trade) Dose Ordered Sig/Becki Route PRN Reason Start Time Stop Time Status Last Admin Dose Admin Lactated Ringer's 1,000 ml @ 0 mls/hr ONCE ONCE IV 04/27/25 13:00 04/27/25 13:01 DC 04/27/25 13:00 Vital Signs Date Time Temp Pulse Resp B/P (MAP) Pulse Ox O2 Delivery O2 Flow Rate FiO2 04/27/25 13:44 98.2 72 16 148/72 100 Room Air* 0 21 04/27/25 12:30 98.2 75 16 162/74 100 Room Air* 0 21 04/27/25 12:12 98.2 75 16 162/79 100 Room Air 0 DX & DISP Disposition: Discharge Departure Impression: Primary Impression: Anemia Additional Impressions: UTI (urinary tract infection), Narcolepsy Condition: Stable Additional Instructions: YOU HAVE BEEN REVIEWED IN THE EMERGENCY DEPARTMENT AT [facility] AFTER PRESENTING WITH CHEST PAIN. AFTER CONSIDERING YOUR HISTORY, YOUR RISK FACTORS, YOUR EKG AND YOUR BLOOD TEST TROPONINS, HAVE BEEN FOUND TO BE AT VERY LOW RISK LESS THAN (1 IN 100) OF HAVING A MAJOR ADVERSE CARDIAC EVENT (LIKE HEART ATTACK) IN THE NEAR FUTURE. IN THE " LOW RISK" GROUP, THE RISKS OF DOING FURTHER TESTS AND TREATMENT THE INPATIENT OUTWEIGHS THE BENEFITS. IN MANY PATIENTS IN THE LOW RISK GROUP FOR THE TEST OF ANY SORT OR UNNECESSARY, HOWEVER HE SHOULD DISCUSS THIS FURTHER WITH HIS GENERAL PRACTITIONER WHO WILL UNDERSTAND THE MEDICAL AND PERSONAL BACKGROUNDS BETTER. BECAUSE WE HAVE NEVER DECLARED YOU" NO RISK" WE WOULD SUGGEST. 1 RETURNING FOR MEDICAL REVIEW IF YOU HAVE FURTHER EPISODES OF CHEST PAIN/ARM PAIN OR OTHER CONCERNING SYMPTOMS LIKE DIZZINESS, COLLAPSE, PALPITATIONS OR SHORTNESS OF BREATH. 2. FOLLOWING UP WITH YOUR LOCAL DOCTOR WHO WILL CONSIDER THE NEED FOR FURTHER TESTING AND WILL ALSO ENSURE THAT ANY MODIFIABLE RISK FACTORS YOU MAY HAVE FOR HEART DISEASE ARE OPTIMALLY MANAGED. PATIENT WILL BE DISCHARGED IN STABLE CONDITION AT THE MOMENT DISCHARGE PATIENT STATES , NO CHEST PAIN Referrals: DANAY MUÑOZ MD (PCP) Time of Disposition: 13:29 BRAD WOLF MD Apr 27, 2025 13:33
[2025-04-27 13:44] VITALS: BP 148/72; PULSE 72; RESP 16; TEMP 98.2; O2SAT 100
[2025-04-27] MEDS ORDERED: CIPR-279 PO (13:56)
[2025-04-27] MEDS ORDERED: DOCU-116 PO (13:56)
[2025-04-27] MEDS ORDERED: FERR324T4 PO (13:56)
--- NOTE | 2025-04-27 14:02 | HMCIMG ---
CLINICAL INFORMATION Chest pain COMPARISON None. TECHNIQUE Frontal view chest. FINDINGS Lines and tubes: None Lungs: Clear. Pleura: Unremarkable. No effusion or pneumothorax. Cardiomediastinal Silhouette: Cardiomegaly. Bones: Sternotomy wires. Soft Tissues: Abandoned epicardial lead. IMPRESSION No acute pulmonary findings. Cardiomegaly. /[place]
== END 2025-04-27 13:47 | disposition home or self-care (01) ==
LOC: EDH 12:09
DX: D64.9 Anemia, unspecified (principal); N39.0 Urinary tract infection, site not specified; G47.419 Narcolepsy without cataplexy; Z79.899 Other long term (current) drug therapy; Z88.1 Allergy status to other antibiotic agents; Z90.49 Acquired absence of other specified parts of digestive tract; Z95.1 Presence of aortocoronary bypass graft
CPT/HCPCS: 99284; 96360; 71045; 84484; 80048; 85025; 87086; 81001; 81025; 36415; 93005; J7120

== ENCOUNTER → 2025-08-26 | Outpatient (CLI) | payer BC ==
[2025-08-26] MEDS: REGADENOSON 0.4 MG/5 ML PF SYG IVP ONE (11:06)
== END | disposition home or self-care (01) ==
LOC: RAH 08:56
PROVIDERS: ATTEND Internal Medicine Cardiovascular Disease
DX: I25.10 Atherosclerotic heart disease of native coronary artery without angina pectoris (principal)
CPT/HCPCS: 78452; 93017; J2785; A9500 ×2